=== PATIENT | female | born 1975 | race Caucasian/White ===

== ENCOUNTER 2022-03-18 16:02 | Emergency (ER) | payer OTHER ==
[~2022-03-18] VITALS: Ht 157.5 cm; Wt 68.0 kg
[2022-03-18 16:05] VITALS: BP_SYST 124
--- NOTE | 2022-03-18 16:20 | NUR ---
TRIAGED AND BROUGHT PT BACK TO BED 4
--- NOTE | 2022-03-18 16:34 | NUR ---
REPORT GIVEN TO JENNY
--- NOTE | 2022-03-18 17:08 | NUR ---
PLACED PT ON MONITOR/PT BROUGHT TO ER MY BF VIA PRIVATE VEHICLE AO THIS MORNING PT STARTED FEELING SOB, SYNCOPE WHEN CLIMBING STAIRS, PT HAS HX OF SEVERE VIGINAL BLEEDING DURING HER MENSES. PT ALSO XPRINCE PALPITATION INTERMENTANLY OF THIS MORNING. VS ARE WITHIN NORMAL LIMITS. PT IS RESTING IN BED WITH BED LOWERED, LOCKED AND RAILS UP. WILL CONTINUE TO MONITOR
--- NOTE | 2022-03-18 17:10 | NUR ---
DR FERRARI ASSESSING PT AT BEDSIDE
[2022-03-18 17:59] LABS: BASOPHILS % (AUTO) 0.4 % (0.0-2.0); EOSINOPHILS # (AUTO) 0.1 K/uL (0.0-0.4); EOSINOPHILS % (AUTO) 1.6 % (0.0-4.0); HEMATOCRIT 22.9 % (36-48); HEMOGLOBIN 7.1 g/dL (12.0-16.0); LYMPHOCYTES # (AUTO) 0.7 K/uL (1.0-5.5); LYMPHOCYTES % (AUTO) 13.1 % (20.5-51.5); MEAN CORPUSCULAR HEMOGLOBIN 20 pg (27-31); MEAN CORPUSCULAR HGB CONC 31 % (32-36); MEAN CORPUSCULAR VOLUME 66 fL (79.0-98.0); MONOCYTES # (AUTO) 0.4 K/uL (0.0-1.0); MONOCYTES % (AUTO) 7.6 % (1.7-9.3); NEUTROPHILS # (AUTO) 4.3 K/uL (1.8-7.7); NEUTROPHILS % (AUTO) 77.3 % (40.0-70.0); PLATELET COUNT (AUTO) 309 K/uL (130-430); WHITE BLOOD COUNT (AUTO) 5.6 K/uL (4.8-10.8)
[2022-03-18 18:21] LABS: CALCIUM 7.9 mg/dL (8.4-11.0); CREATININE 0.68 mg/dL (0.55-1.30); POTASSIUM 3.8 mmol/L (3.5-5.1)
[2022-03-18 18:28] LABS: PROTHROMBIN TIME 10.4 SECS (9.5-12.5)
[2022-03-18 18:44] LABS: ALBUMIN 3.1 g/dL (3.4-4.8); TOTAL BILIRUBIN 0.1 mg/dL (0.0-1.0)
[2022-03-18 19:43] LABS: BILIRUBIN,URINE NEGATIVE (NEGATIVE); BLOOD, URINE 3+ (NEGATIVE); CLARITY/URINE TURBID (CLEAR); COLOR,URINE RED (YELLOW); GLUCOSE,URINE NEGATIVE (NEGATIVE); KETONES,URINE TRACE (NEGATIVE); LEUKOCYTE ESTERASE ,URINE NEGATIVE (NEGATIVE); NITRITE, URINE NEGATIVE (NEGATIVE); PROTEIN URINE 2+ (NEGATIVE); UROBILINOGEN,URINE 0.2 (0.2-1.0)
[2022-03-18 19:50] LABS: BACTERIA,URINE RARE /HPF (None Seen); RBC,URINE >100 /HPF (0-3)
[2022-03-18 19:51] LABS: MUCUS,URINE 1+ /LPF (None Seen)
[2022-03-19] MEDS ORDERED: IBUPROFEN 600 MG TABLET PO ONE (00:45)
[2022-03-19 01:24] VITALS: BP_SYST 110
== END 2022-03-19 01:45 | disposition home or self-care (01) ==
LOC: SED 16:02
DX: D64.9 Anemia, unspecified (principal); N92.0 Excessive and frequent menstruation with regular cycle; N93.8 Other specified abnormal uterine and vaginal bleeding; R53.1 Weakness; Z79.899 Other long term (current) drug therapy
CPT/HCPCS: 99285; 36430; 80053; 81000; 84702; 85025; 85610; 85730; 86886; 86900; 86901; 87086; 86920; 36415; P9021; 99284